=== PATIENT | male | born 1960 | race Caucasian/White ===

== ENCOUNTER 2017-05-03 21:30 | Emergency (ER) | payer MEDICARE ==
--- NOTE | 2017-05-03 21:43 | ERPHSYRPT ---
- History of Present Illness Time Seen by Provider: 05/03/17 21:38 Historian: patient Exam Limitations: no limitations Physician History: 56 y/o male with history of [place] with stents and PE brought in by ambulance after having chest pain while bowling this evening. Pt says he had dizziness, became diaphoretic and had substernal chest tightness. Pt describes the pain as heaviness, constant, 9/10 and pt has not taken any pain meds. Pt has been in and out of consciousness, mostly with his eyes closed. Pt has been compliant on his coumadin. Pt denies any slurred speech, blurry vision, headache, weakness or confusion. Timing/Duration: today Activities at Onset: none Quality: dullness Location: substernal Chest Pain Radiation: no radiation Severity of Pain-Max: severe Severity of Pain-Current: severe Modifying Factors: Improves With: nothing Associated Symptoms: nausea, dizziness Prior Chest Pain/Cardiac Workup: angina Nitro Today/Relief: no nitro taken today Aspirin Treatment Today: no aspirin today Allergies/Adverse Reactions: indomethacin [From Indocin] Allergy (Verified 05/03/17 22:21) Itching indomethacin sodium [From Indocin] Allergy (Verified 05/03/17 22:21) Itching Home Medications: Metoprolol Tartrate 25 mg [Lopressor 25MG Tab] 25 mg PO DAILY 06/22/14 [ History] Rosuvastatin Calcium [Crestor] 20 mg PO DAILY 06/22/14 [History] Warfarin Sodium 10 mg [Coumadin 10 MG] 10 mg PO UD 06/22/14 [History] Warfarin Sodium [Coumadin] 0 mg PO UD 06/22/14 [History] Dexlansoprazole [Dexilant] 0 mg PO 05/03/17 [History] Hx Tetanus, Diphtheria Vaccination/Date Given: No Hx Influenza Vaccination/Date Given: No Hx Pneumococcal Vaccination/Date Given: No - Review of Systems Constitutional: No Fever, No Chills Eyes: No Symptoms Ears, Nose, & Throat: No Symptoms Respiratory: No Cough, No Dyspnea Cardiac: Chest Pain, No Edema, No Syncope Abdominal/Gastrointestinal: Nausea, No Abdominal Pain, No Vomiting, No Diarrhea Genitourinary Symptoms: No Dysuria Musculoskeletal: No Back Pain, No Neck Pain Skin: No Rash Neurological: Dizziness, No Focal Weakness, No Sensory Changes Psychological: No Symptoms Endocrine: No Symptoms All Other Systems: Reviewed and Negative - Past Medical History Pertinent Past Medical History: Yes Cardiac History: Congestive Heart Failure, Coronary Artery Disease, High Cholesterol, Hypertension, Myocardial Infarction ([place]) (x2) Respiratory History: Pulmonary Embolism GI Medical History: GERD, Gallbladder Disease, Ulcer - Past Surgical History Past Surgical History: Yes Cardiac: Cardiac Catheterization, Cardiac Stent Gastrointestinal: Cholecystectomy Musculoskeletal: Orthopedic Surgery - Social History Smoking Status: Unknown if ever smoked Exposure to second hand smoke: No Drug Use: none Patient Lives Alone: No - Nursing Vital Signs Nursing Vital Signs: Initial Vital Signs Temperature 98.0 F 05/03/17 21:31 Pulse Rate 105 H 05/03/17 21:31 Respiratory Rate 16 05/03/17 21:31 Blood Pressure 181/97 05/03/17 21:31 O2 Sat by Pulse Oximetry 95 05/03/17 21:31 Pain Scale Pain Intensity 9 - Physical Exam General Appearance: no apparent distress, alert Eye Exam: PERRL/EOMI, eyes nml inspection Ears, Nose, Throat Exam: normal ENT inspection, moist mucous membranes Neck Exam: normal inspection, non-tender, supple, full range of motion Respiratory Exam: normal breath sounds, lungs clear, No respiratory distress Cardiovascular Exam: regular rate/rhythm, normal heart sounds Gastrointestinal/Abdomen Exam: soft, No tenderness, No mass Back Exam: normal inspection, No CVA tenderness, No vertebral tenderness Extremity Exam: normal inspection, normal range of motion Neurologic Exam: alert, oriented x 3, cooperative, normal mood/affect, sensation nml, motor deficits, motor weakness Skin Exam: normal color, warm, dry SpO2 Interpretation: normal - Course Nursing assessment & vital signs reviewed: Yes EKG Interpreted by Me: RATE (hr 96), Sinus Rhythm, Non-specific ST Changes Ordered Tests: Active Orders 24 hr Category Date Time Status Sample Collector STAT Care 05/03/17 21:35 Active EKG-ER Only STAT Care 05/03/17 21:35 Active IV Insertion STAT Care 05/03/17 21:35 Active IV Insertion-2nd Peripheral STAT Care 05/03/17 21:57 Active Oxygen-ED Only NASAL CANNULA 4 lpm Care 05/03/17 22:04 Active CHEST WITH CONTRAST [CT] Stat Exams 05/03/17 21:[address] ANGIOGRAPHY NECK [CT] Stat Exams 05/03/17 22:05 Ordered CTA HEAD W AND/OR WO CONTRAST [CT] Stat Exams 05/03/17 22:04 Ordered HEAD WITHOUT CONTRAST [CT] Stat Exams 05/03/17 21:36 Taken CBC W DIFF Stat Lab 05/03/17 21:44 Completed CK-Creatinine Phosphokinase Stat Lab 05/03/17 21:44 Completed CMP Stat Lab 05/03/17 21:44 Completed ETHYL ALCOHOL Stat Lab 05/04/17 01:12 Completed NT PRO BNP Stat Lab 05/03/17 21:44 Completed PROTIME WITH INR Stat Lab 05/03/17 21:44 Completed PTT Stat Lab 05/03/17 21:44 Completed TROPONIN Q3H Lab 05/03/17 21:46 Completed TROPONIN Q3H Lab 05/04/17 00:51 Completed TROPONIN Q3H Lab 05/04/17 03:45 Ordered TROPONIN Q3H Lab 05/04/17 06:45 Ordered TROPONIN Q3H Lab 05/04/17 09:45 Ordered Medication Summary Discontinued Medications Generic Name Dose Route Start Last Admin Trade Name Freq PRN Reason Stop Dose Admin Sodium Chloride 1,000 mls @ 999 mls/hr 05/03/17 22:41 05/03/17 22:46 Sodium Chloride 0.9% 1000 Ml IV 05/03/17 23:41 999 mls/hr .Q1H1M STA Administration Sodium Chloride Confirm 05/03/17 22:43 Sodium Chloride 0.9% 1000 Ml Administered 05/03/17 22:44 Dose 1,000 mls @ ud .ROUTE .STK-MED ONE Morphine Sulfate 4 mg 05/03/17 21:55 05/03/17 22:01 Morphine Sulfate 4 Mg Inj IV 05/03/17 21:56 4 mg STAT ONE Administration Morphine Sulfate Confirm 05/03/17 21:59 Morphine Sulfate 4 Mg Inj Administered 05/03/17 22:00 Dose 4 mg .ROUTE .STK-MED ONE Ondansetron HCl 4 mg 05/03/17 21:56 05/03/17 22:02 Zofran 4 Mg/2 Ml Vial IV 05/03/17 21:57 4 mg STAT ONE Administration Ondansetron HCl Confirm 05/03/17 21:59 Zofran 4 Mg/2 Ml Vial Administered 05/03/17 22:00 Dose 4 mg .ROUTE .STK-MED ONE Lab/Rad Data: Laboratory Result Diagrams 05/03/17 21:44 05/03/17 21:44 Laboratory Results 05/04/17 05/04/17 05/03/17 Range/Units 01:12 00:51 21:46 WBC (4.0-10.5) K/mm3 RBC (4.1-5.6) M/mm3 Hgb (12.5-18.0) gm/dl Hct (42-50) % MCV (78-100) fl MCH (26-32) pg MCHC (32-36) g/dl RDW (11.5-14.0) % Plt Count (150-450) K/mm3 MPV (6-9.5) fl Gran % (36.0-66.0) % Lymphocytes % (24.0-44.0) % Monocytes % (0.0-12.0) % Eosinophils % (0.00-5.0) % Basophils % (0.0-0.4) % Basophils # (0-0.4) INR (0.8-3.0) APTT (24.1-36.1) SECONDS Sodium (136-145) mEq/L Potassium (3.5-5.1) mEq/L Chloride (98-107) mEq/L Carbon Dioxide (21-32) mEq/L Anion Gap (5-15) MEQ/L BUN (9-20) mg/dL Creatinine (0.55-1.30) mg/dl Estimated GFR ML/MIN Glucose (70-110) MG/DL Calcium (8.5-10.1) mg/dL Total Bilirubin (0.2-1.0) mg/dL AST (15-37) U/L ALT (12-78) U/L Alkaline Phosphatase (46-116) U/L Creatine Kinase (39-308) U/L Troponin I < 0.017 < 0.017 (0.000-0.056) ng/ml NT-Pro-B Natriuret Pep (0-125) pg/ml Serum Total Protein (6.4-8.2) gm/dL Albumin (3.4-5.0) g/dL Urine Opiates Level (NEGATIVE) Ur Methadone (NEGATIVE) Urine Barbiturates (NEGATIVE) Ur Phencyclidine (PCP) (NEGATIVE) Urine Amphetamine (NEGATIVE) U Benzodiazepine Level (NEGATIVE) Urine Cocaine (NEGATIVE) Urine Marijuana (THC) (NEGATIVE) Ethyl Alcohol < 0.010 (0.00-0.01) % 05/03/17 05/03/17 05/03/17 Range/Units 21:44 21:44 21:44 WBC 9.1 (4.0-10.5) K/mm3 RBC 4.76 (4.1-5.6) M/mm3 Hgb 14.9 (12.5-18.0) gm/dl Hct 42.8 (42-50) % MCV 89.9 (78-100) fl MCH 31.3 (26-32) pg MCHC 34.8 (32-36) g/dl RDW 13.3 (11.5-14.0) % Plt Count 288 (150-450) K/mm3 MPV 9.8 H (6-9.5) fl Gran % 62.2 (36.0-66.0) % Lymphocytes % 27.4 (24.0-44.0) % Monocytes % 9.1 (0.0-12.0) % Eosinophils % 1.0 (0.00-5.0) % Basophils % 0.3 (0.0-0.4) % Basophils # 0.03 (0-0.4) INR 1.78 (0.8-3.0) APTT 33.9 (24.1-36.1) SECONDS Sodium 138 (136-145) mEq/L Potassium 3.8 (3.5-5.1) mEq/L Chloride 100 (98-107) mEq/L Carbon Dioxide 27.7 (21-32) mEq/L Anion Gap 13.6 (5-15) MEQ/L BUN 17 (9-20) mg/dL Creatinine 1.58 H (0.55-1.30) mg/dl Estimated GFR 48 ML/MIN Glucose 113 H (70-110) MG/DL Calcium 9.2 (8.5-10.1) mg/dL Total Bilirubin 0.50 (0.2-1.0) mg/dL AST 22 (15-37) U/L ALT 34 (12-78) U/L Alkaline Phosphatase 68 (46-116) U/L Creatine Kinase 179 (39-308) U/L Troponin I (0.000-0.056) ng/ml NT-Pro-B Natriuret Pep 36 (0-125) pg/ml Serum Total Protein 7.5 (6.4-8.2) gm/dL Albumin 4.4 (3.4-5.0) g/dL Urine Opiates Level (NEGATIVE) Ur Methadone (NEGATIVE) Urine Barbiturates (NEGATIVE) Ur Phencyclidine (PCP) (NEGATIVE) Urine Amphetamine (NEGATIVE) U Benzodiazepine Level (NEGATIVE) Urine Cocaine (NEGATIVE) Urine Marijuana (THC) (NEGATIVE) Ethyl Alcohol (0.00-0.01) % 05/03/17 Range/Units 00:19 WBC (4.0-10.5) K/mm3 RBC (4.1-5.6) M/mm3 Hgb (12.5-18.0) gm/dl Hct (42-50) % MCV (78-100) fl MCH (26-32) pg MCHC (32-36) g/dl RDW (11.5-14.0) % Plt Count (150-450) K/mm3 MPV (6-9.5) fl Gran % (36.0-66.0) % Lymphocytes % (24.0-44.0) % Monocytes % (0.0-12.0) % Eosinophils % (0.00-5.0) % Basophils % (0.0-0.4) % Basophils # (0-0.4) INR (0.8-3.0) APTT (24.1-36.1) SECONDS Sodium (136-145) mEq/L Potassium (3.5-5.1) mEq/L Chloride (98-107) mEq/L Carbon Dioxide (21-32) mEq/L Anion Gap (5-15) MEQ/L BUN (9-20) mg/dL Creatinine (0.55-1.30) mg/dl Estimated GFR ML/MIN Glucose (70-110) MG/DL Calcium (8.5-10.1) mg/dL Total Bilirubin (0.2-1.0) mg/dL AST (15-37) U/L ALT (12-78) U/L Alkaline Phosphatase (46-116) U/L Creatine Kinase (39-308) U/L Troponin I (0.000-0.056) ng/ml NT-Pro-B Natriuret Pep (0-125) pg/ml Serum Total Protein (6.4-8.2) gm/dL Albumin (3.4-5.0) g/dL Urine Opiates Level NEG. (NEGATIVE) Ur Methadone NEG. (NEGATIVE) Urine Barbiturates NEG. (NEGATIVE) Ur Phencyclidine (PCP) NEG. (NEGATIVE) Urine Amphetamine NEG. (NEGATIVE) U Benzodiazepine Level NEG. (NEGATIVE) Urine Cocaine NEG. (NEGATIVE) Urine Marijuana (THC) NEG. (NEGATIVE) Ethyl Alcohol (0.00-0.01) % - Progress Progress: unchanged Progress Note: 05/04/17 00:54 Since arriving to the ER, patient is drowsy but wakes up and is able to follow command. On re-evaluation, patient has a right sided facial droop and right upper extremity droop. Patient is also having some difficulty speaking. The initial CT scan head w/o contrast is within normal limits. The initial EKG does not show any acute changes and the first troponin is negative. The CTA head is within normal limits but the CTA neck shows a short segment of dissection in the right common carotid artery. 05/04/17 01:37 Patient will need further workup with MRI an serial enzymes. Pt is starting to talk more. Patient was giving a dose of ASA before coming to the ER. Pt has been accepted at [facility] under the care of hospitalist, Dr Benitez and neurologist, Dr Roper. - Departure Time of Disposition: 01:39 Departure Disposition: Transfer Clinical Impression: TIA (transient ischemic attack) Qualifiers: Transient cerebral ischemia type: unspecified Qualified Code(s): G45.9 - Transient cerebral ischemic attack, unspecified Chest pain Qualifiers: Chest pain type: unspecified Qualified Code(s): R07.9 - Chest pain, unspecified Condition: Stable Critical Care Time: Yes Critical Care Time(excluding separately billable procedures): 75-104 minutes Referrals: DARI DIAZ [Primary Care Provider] -
[2017-05-03 21:48] LABS: BASOPHIL % 0.3 % (0.0-0.4); Granulocytes % 62.2 % (36.0-66.0); Lymphocytes % 27.4 % (24.0-44.0); Mean Cell Volume 89.9 fl (78-100); Mean Corpuscular Hemoglobin 31.3 pg (26-32); Mean Platelet Volume 9.8 fl (6-9.5); Monocytes % 9.1 % (0.0-12.0); Platelet Count 288 K/mm3 (150-450); Red Blood Count 4.76 M/mm3 (4.1-5.6); Red Cell Distribution Width 13.3 % (11.5-14.0); White Blood Count 9.1 K/mm3 (4.0-10.5)
[2017-05-03] MEDS ORDERED: MORPHINE SULFATE 4 MG INJ IV ONE (21:55)
[2017-05-03] MEDS ORDERED: Zofran 4 MG/2 ML VIAL IV ONE (21:56)
[2017-05-03] MEDS ORDERED: Zofran 4 MG/2 ML VIAL ONE (21:59)
[2017-05-03] MEDS ORDERED: MORPHINE SULFATE 4 MG INJ ONE (21:59)
[2017-05-03 22:05] LABS: INR 1.78 (0.8-3.0); PROTIME 19.9 SECONDS (8.83-12.87)
[2017-05-03 22:08] LABS: PTT 33.9 SECONDS (24.1-36.1)
[2017-05-03 22:20] LABS: ALBUMIN 4.4 g/dL (3.4-5.0); ANION GAP 13.6 MEQ/L (5-15); BILIRUBIN,TOTAL 0.5 mg/dL (0.2-1.0); Carbon Dioxide 27.7 mEq/L (21-32); Potassium 3.8 mEq/L (3.5-5.1); Total Protein 7.5 gm/dL (6.4-8.2)
[2017-05-03] MEDS ORDERED: Sodium Chloride 0.9% 1000 ML 1,000 ML IV STA (22:41)
[2017-05-03] MEDS ORDERED: Sodium Chloride 0.9% 1000 ML 1,000 ML ONE (22:43)
[2017-05-04] MEDS ORDERED: MORPHINE SULFATE 2 MG INJ IV ONE ×2 (01:47→07:46)
[2017-05-04] MEDS ORDERED: PROTONIX 40 MG IV IV ONE ×2 (01:47→01:50)
[2017-05-04] MEDS ORDERED: MORPHINE SULFATE 2 MG INJ ONE ×2 (01:50→07:53)
[2017-05-04 06:16] VITALS: O2SAT 97
[2017-05-04 07:31] VITALS: BP 156/60; PULSE 73
[2017-05-04] MEDS ORDERED: Zofran 4 MG/2 ML VIAL IV ONE (07:51)
[2017-05-04] MEDS ORDERED: Zofran 4 MG/2 ML VIAL ONE (07:53)
--- NOTE | 2017-05-04 08:53 | XRAY ---
Indication: Right-sided weakness. Multiple contiguous axial images obtained through the head without contrast. Comparison: None Normal appearing brain parenchyma, ventricles, and bony calvarium. Inferior right maxillary sinus mucosal thickening. Remaining visualized paranasal sinuses and mastoid air cells are clear. Impression: Normal CT head without contrast exam. Incidental paranasal sinus disease. Comment: Preliminary interpretation was made by [facility]. No discrepancy. CT DI 67.80
--- NOTE | 2017-05-04 09:04 | XRAY ---
Indication: Right-sided weakness. Conventional CTA neck was performed using 150 cc Isovue 370 contrast. Two-dimensional sagittal and coronal reformatted images obtained. Comparison: None Patient's GFR is 48. This was reported to the ordering clinician who acknowledged and requested the CTA be performed. Normal CTA appearing visualized aortic arch with normal branching right brachiocephalic, left common carotid, and left subclavian arteries. Right common carotid artery is normal in course and caliber. There is short segment of dissection in the proximal common carotid artery (images 22-29, series 4). Very minimal eccentric calcified plaquing seen at the level of the bulb without critical stenosis/obstruction. Remaining visualized internal and external carotid arteries are normal in CTA appearance. Left common carotid artery, bulb, internal carotid, and external carotid arteries are normal in CTA appearance. Vertebrobasilar circulation demonstrates bilaterally patent vertebral arteries with the left slightly larger in size. No critical stenosis, obstruction, or AV malformation. Impression: 1. 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 2. Minimal right carotid bulb calcified plaquing. 3. Remaining CTA neck is negative. Comment: Preliminary interpretation was made by [facility]. No critical discrepancy. CT DI 86.36
--- NOTE | 2017-05-04 09:06 | XRAY ---
Indication: Right-sided weakness. Conventional CTA head was performed using 150 cc Isovue 370 contrast. Two-dimensional sagittal and coronal reformatted images obtained. Comparison: None Patient's GFR is 48. This was reported to the ordering clinician who acknowledged and requested the CTA be performed. Normal CTA appearing [place]. Remaining whole brain is negative for abnormal enhancing intra-or extra-axial mass or AV malformation. Superior/inferior sagittal sinuses and transverse sinuses are unremarkable. CT head reported separately. Impression: Negative CTA head. Comment: Preliminary interpretation was made by [facility]. No critical discrepancy. CT DI 86.36
--- NOTE | 2017-05-04 09:10 | XRAY ---
Indication: Right-sided weakness. Chest pain and short of breath. Multiple contiguous axial images obtained through the abdomen and pelvis without contrast as ordered. Comparison: None CT chest reported separately. Noncontrasted stomach and bowel loops appear nonobstructed. Previous cholecystectomy. No free fluid/air. Contrast in the system from CTA study performed earlier in the day. Left renal duplicating system. Remaining liver, pancreas, spleen, adrenal glands, kidneys, ureters, and bladder appear unremarkable. Mild aortoiliac calcifications without AAA. Osseous structures intact with mild degenerative changes throughout the spine. Small fatty left inguinal hernia. Impression: 1. No acute intra-abdominal/pelvic abnormalities. 2. Incidental left renal duplicating collecting system and fatty left inguinal hernia. Comment: Preliminary interpretation was made by [facility]. No critical discrepancy. CT DI 23.67
--- NOTE | 2017-05-04 09:15 | XRAY ---
Indication: Right-sided weakness. Chest pain and short of breath. Multiple contiguous axial images obtained through the chest using 150 cc Isovue 370 contrast and PE protocol. Comparison: June 22, 2014. Patient's GFR is 48. This was reported to the ordering clinician who acknowledged and requested contrasted CT chest exam be performed. There is satisfactory opacification of the pulmonary arteries. No filling defect or pulmonary embolus. Heart is not enlarged. Aorta is normal in course and caliber. No pathologic mediastinal/hilar lymphadenopathy. Examination of the lung parenchyma demonstrates moderate bilateral dependent atelectasis and minimal bibasilar atelectasis/scarring. No suspicious pulmonary mass, infiltrate, consolidation, or effusion. Bony thorax intact with mild flowing osteophytes throughout the spine. CT abdomen reported separately. Impression: 1. Negative pulmonary embolus. 2. No acute cardiopulmonary normalities. Comment: Preliminary interpretation was made by [facility]. No critical discrepancy. CT DI 28.14
[2017-05-04] MEDS ORDERED: NITRO-BID 2% UD PACKETS TOP ONE (09:19)
== END 2017-05-04 08:40 | disposition short-term general hospital (02) ==
LOC: ED 21:30
DX: G45.9 Transient cerebral ischemic attack, unspecified (principal); R07.89 Other chest pain; I25.2 Old myocardial infarction; Z86.711 Personal history of pulmonary embolism; R42 Dizziness and giddiness; Z79.01 Long term (current) use of anticoagulants; R11.0 Nausea; Z79.899 Other long term (current) drug therapy; I50.9 Heart failure, unspecified; E78.00 Pure hypercholesterolemia, unspecified; I10 Essential (primary) hypertension
CPT/HCPCS: 93041; 96374; 99291; 36000; 99292; 96360; 96361; 96375 ×2; 93005; 85610; 85730; 36415 ×2; 82550; 83880; 80307; 85025; 80053; 84484 ×2; 70450; 70498; 70496; 74176; 71260; G0481; 96376; J2270; J2405